=== PATIENT | female | born 1940 | race Caucasian/White ===

== ENCOUNTER 2016-12-17 12:41 | Outpatient (CLI) | payer MEDICARE, OTHER ==
[2015-07-27 19:18] VITALS: BP 187/82
--- NOTE | 2016-12-17 14:01 | Diagnostic Imaging Report ---
[facility] [address] [facility] [address] [address] Report Submission Date: Dec 17, 2016 1:22:24 PM SLASHER HAND Patient Study Name: SALOME ZAPATA Date: Dec 17, 2016 12:49:38 PM SLASHER HAND Modality Type: CR Gender: F Description: UPPER EXTREMITY : 36 Institution: [facility] Physician PAULA WHITESIDE - OP Right hand three views HISTORY: Pain after fall FINDINGS: A nondisplaced oblique mid right 4th metacarpal shaft fracture is observed. Diffuse osteopenia is present. The remainder of the hand is intact. IMPRESSION: Nondisplaced right 4th metacarpal shaft fracture. Electronically signed on Dec 17, 2016 1:22:24 PM SLASHER HAND by: Antonio REYES
--- NOTE | 2016-12-17 14:02 | Diagnostic Imaging Report ---
[facility] [address] [facility] [address] [address] Report Submission Date: Dec 17, 2016 1:22:24 PM [employer] DESIGNER Patient Study Name: SALOME ZAPATA Date: Dec 17, 2016 12:49:38 PM [employer] DESIGNER Modality Type: CR Gender: F Description: UPPER EXTREMITY : 38 Institution: [facility] Physician PAULA WHITESIDE - OP Right hand three views HISTORY: Pain after fall FINDINGS: A nondisplaced oblique mid right 4th metacarpal shaft fracture is observed. Diffuse osteopenia is present. The remainder of the hand is intact. IMPRESSION: Nondisplaced right 4th metacarpal shaft fracture. Electronically signed on Dec 17, 2016 1:22:24 PM [employer] DES[employer] by: Antonio REYES
--- NOTE | 2016-12-17 14:02 | Diagnostic Imaging Report ---
[facility] [address] [facility] [address] [address] Report Submission Date: Dec 17, 2016 1:23:13 PM SURGERY MANAGER Patient Study Name: SALOME ZAPATA Date: Dec 17, 2016 12:54:26 PM SURGERY MANAGER Modality Type: CR Gender: F Description: UPPER EXTREMITY : 38 Institution: [facility] Physician PAULA WHITESIDE - OP Right wrist three views HISTORY: Pain after fall FINDINGS: Osteopenia is observed. The right wrist is otherwise intact without acute fracture, dislocation, arthropathy, or focal bone lesion. Electronically signed on Dec 17, 2016 1:23:13 PM SURGERY MANAGER by: Antonio REYES
== END 2016-12-17 12:42 ==
LOC: RAD 12:41
PROVIDERS: ATTEND Family Medicine
DX: S62.322A Displaced fracture of shaft of third metacarpal bone, right hand, initial encounter for closed fracture (principal); S62.324A Displaced fracture of shaft of fourth metacarpal bone, right hand, initial encounter for closed fracture; X58.XXXA Exposure to other specified factors, initial encounter; Y93.9 Activity, unspecified; Y99.9 Unspecified external cause status
CPT/HCPCS: 73110; 73130

== ENCOUNTER 2017-02-14 12:42 | Outpatient (CLI) | payer MEDICARE, OTHER ==
[2015-07-27 19:18] VITALS: BP 187/82
--- NOTE | 2017-02-15 01:29 | Diagnostic Imaging Report ---
PAULA WHITESIDE~ [facility] [address] [address] [facility] [address] [place], [place]. [address] ~ ~ ~ ~ Report Submission Date: Feb 14, 2017 4:06:14 PM CDT Patient ~ Study Name: SALOME ZAPATA ~ Date: Feb 14, 2017 12:56:43 PM CDT ~ Modality Type: CR Gender: F ~ Description: SPINE : 36 ~ Institution: [facility] Physician: PAULA WHITESIDE ~ ~ ~ ~ Thoracic spine 2 views Clinical history: Severe back pain Severe osteopenia with osteoarthrosis and slight dextroscoliosis. Suboptimal lateral projection of the thoracic spine. Cannot exclude acute fractures . Please correlate clinically . CT of the thoracic spine may be needed if clinically justified. Impression: Severe osteopenia with osteoarthritis and slight dextroscoliosis Suboptimally lateral projections cannot exclude acute fractures ~ Electronically signed on Feb 14, 2017 4:06:14 PM CDT by: Gavino REYES
--- NOTE | 2017-02-15 01:30 | Diagnostic Imaging Report ---
PAULA WHITESIDE~ [facility] [address] [facility] [address] 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 Compression fracture of the superior endplate of from T12 appear to be old fracture with compression fracture of the superior endplate of L4 also appear to be old , however clinical correlation is recommended . grade I anterior spondylolisthesis of L5/S1 Impression: Severe osteopenia with osteoarthritis and levoscoliosis Compression fracture of the superior endplate of T12 and L4 Grade I anterior spondylolisthesis of L5/S1 . ~ Electronically signed on Feb 14, 2017 3:33:52 PM CDT by: Gavino REYES
== END 2017-02-14 12:43 ==
LOC: RAD 12:42
PROVIDERS: ATTEND Family Medicine
DX: M54.5 Low back pain (principal); C34.90 Malignant neoplasm of unspecified part of unspecified bronchus or lung
CPT/HCPCS: 72072; 72100